=== PATIENT | male | born 1990 | race Hispanic/Latino ===

== ENCOUNTER 2018-01-26 07:25 | Day surgery (SDC) | payer OTHER ==
[2018-01-26] MEDS: LR 1,000 ML IV (07:55)
[2018-01-26] MEDS ORDERED: MIDAZOLAM INJ 2 MG/2 ML VIAL (J2250) As Ordered (08:06)
[2018-01-26] MEDS ORDERED: fentaNYL 250 MCG/5 ML INJECTION (J3010) As Ordered (08:06)
[2018-01-26] MEDS ORDERED: PROPOFOL 200 MG/20 ML VIAL As Ordered (08:06)
[2018-01-26] MEDS ORDERED: LIDOCAINE 2% INJ 100 MG/5 ML SDV (FOR ANES.) As Ordered (08:06)
[2018-01-26] MEDS ORDERED: ROCURONIUM BROMIDE 50 MG/5 ML VIAL As Ordered ×2 (08:06→10:02)
[2018-01-26] MEDS ORDERED: dexameTHASONE 4 MG/ML 1ML VIAL (J1100) As Ordered ×2 (09:59)
[2018-01-26] MEDS ORDERED: HYDROmorphone HCL 2 MG/ML 1ML VIAL (J1170) As Ordered (10:00)
[2018-01-26] MEDS ORDERED: ONDANSETRON 4MG/2ML VIAL (J2405) As Ordered (10:02)
[2018-01-26] MEDS ORDERED: SUGAMMADEX SODIUM 500 MG/5 ML VIAL (BRIDION) As Ordered (10:02)
[2018-01-26] MEDS: LIDOCAINE W/EPINEPHRINE 1% 20ML VIAL As Ordered (10:15)
[2018-01-26] MEDS: METHYLENE BLUE 0.5% (5MG/ML) 10 ML AMP (PROVAYBLUE)(Q9968 PER 1MG) As Ordered (10:20)
[2018-01-26] MEDS: EPINEPHrine 1MG/ML INJ 30ML MD-VIAL As Ordered (10:20)
[2018-01-26] MEDS ORDERED: ePHEDrine SULFATE 25 MG/5 ML(5MG/ML) SYRINGE As Ordered (10:22)
[2018-01-26] MEDS ORDERED: ACETAMINOPH W/CODEINE #3 TAB UD PO (10:45)
[2018-01-26] MEDS ORDERED: LR 1,000 ML IV ×2 (10:45→12:15)
[2018-01-26] MEDS ORDERED: HYDROMORPHONE HCL 0.5 MG/ 0.5 ML SYRINGE (J1170 PER 1) IV (12:15)
[2018-01-26] MEDS ORDERED: fentaNYL 100 MCG/2 ML INJECTION (J3010) IV (12:15)
[2018-01-26] MEDS: PERCOCET 5MG/325MG TAB PO ×2 (12:31→12:55)
[2018-01-26] MEDS: ONDANSETRON 4MG/2ML VIAL (J2405) IV (12:31)
== END 2018-01-26 14:14 | disposition home or self-care (01) ==
LOC: M SDC 07:25
DX: J34.2 Deviated nasal septum (principal); J31.0 Chronic rhinitis; R04.0 Epistaxis; R06.83 Snoring; Z72.0 Tobacco use
CPT/HCPCS: 30520